=== PATIENT | female | born 1990 | race African-American/Black ===

== ENCOUNTER 2022-05-28 10:08 | Emergency (ER) | payer MEDICAID, OTHER ==
[~2022-05-28] VITALS: Ht 167.6 cm; Wt 62.1 kg
[2022-05-28 10:40] VITALS: BP 24/82
[2022-05-28] MEDS ORDERED: ONDANSETRON ODT 4 MG TAB PO ONE (11:15)
[2022-05-28] MEDS ORDERED: ACETAMINOPHEN 500 MG TAB PO ONE (11:15)
[2022-05-28] MEDS ORDERED: SUMA50TA2 PO (11:46)
[2022-05-28] MEDS ORDERED: ONDA-144 PO (11:46)
== END 2022-05-28 12:01 | disposition home or self-care (01) ==
LOC: ER 10:08
DX: G43.009 Migraine without aura, not intractable, without status migrainosus (principal)
CPT/HCPCS: 70450; 99284; Q0162

== ENCOUNTER 2022-06-18 11:21 | Emergency (ER) | payer MEDICAID ==
[~2022-06-18] VITALS: Ht 165.1 cm; Wt 61.0 kg
[~2022-06-18 11:21] MED LIST: ONDA-144 PO; SUMA50TA2 PO
[2022-06-18 11:57] VITALS: BP 148/92
[2022-06-18] MEDS ORDERED: LIDOCAINE 1% HCL (LOCAL ANESTH.) INJ 20ML MDV IJ ONE (12:45)
[2022-06-18] MEDS ORDERED: IBUP800T27 PO (13:08)
[2022-06-18] MEDS ORDERED: CEPH-510 PO (13:08)
[2022-06-18] MEDS ORDERED: IBUPROFEN 800 MG TAB PO ONE (13:15)
== END 2022-06-18 13:20 | disposition home or self-care (01) ==
LOC: ER 11:21
DX: S60.852A Superficial foreign body of left wrist, initial encounter (principal); F17.210 Nicotine dependence, cigarettes, uncomplicated; F12.10 Cannabis abuse, uncomplicated; F15.10 Other stimulant abuse, uncomplicated; W34.09XA Accidental discharge from other specified firearms, initial encounter; Y93.89 Activity, other specified; Y92.89 Other specified places as the place of occurrence of the external cause; Y99.8 Other external cause status
CPT/HCPCS: 10120; 73110; 99285; J2001